=== PATIENT | male | born 1960 | race Hispanic/Latino ===

== ENCOUNTER 2022-12-02 10:51 | Emergency (ER) | payer SELFPAY ==
[2022-12-02] MEDS ORDERED: Bacitracin 1 PK ONE (11:16)
== END 2022-12-02 11:20 | disposition home or self-care (01) ==
LOC: ERS 10:51
DX: S61.214A Laceration without foreign body of right ring finger without damage to nail, initial encounter (principal); W26.0XXA Contact with knife, initial encounter
CPT/HCPCS: 99282